=== PATIENT | female | born 1950 | race Caucasian/White ===

== ENCOUNTER → 2022-03-07 | Outpatient (CLI) | payer OTHER ==
[2022-03-07 19:57] LABS: Alanine Aminotransfer (ALT/SGP 21 U/L (12-78); Albumin, Blood 3.5 g/dL (3.4-5.0); Albumin/Globulin Ratio 0.9 (0.8-1.8); Alk Phos 94 U/L (50-136); Anion Gap 8 mmol/L (6-16); Aspartate Aminotrans (AST/SGOT 26 U/L (12-37); BASOPHILS ABSOLUTE AUTO 0.05 K/mm3 (0.00-0.23); BASOPHILS PERCENT AUTO 1 % (0-2); Bilirubin, Total 0.6 mg/dL (0.1-1.0); Blood Urea Nitrogen 28 mg/dL (8-24); Bun/Creatinine Ratio 20.7 (12.0-20.0); CHOL/HDL RATIO 4.1; CO2, Blood 24 mmol/L (21-32); Calcium, Blood 9.4 mg/dL (8.5-10.1); Chloride, Blood 108 mmol/L (98-108); Cholesterol 196 mg/dL (50-200); Creatinine, Blood 1.35 mg/dL (0.40-1.00); EOSINOPHILS ABSOLUTE AUTO 0.14 K/mm3 (0.00-0.68); EOSINOPHILS PERCENT AUTO 2 % (0-6); Globulin, Blood 4.1 g/dL (2.2-4.0); Glomerular Filtration Rate 42 (60-); Glucose, Blood 110 mg/dL (70-99); HDL Cholesterol 48 mg/dL (>39); Hematocrit 42.6 % (33.0-51.0); Hemoglobin 13.6 g/dL (11.5-16.0); IMMATURE GRAN ABSOLUTE AUTO 0.02 K/mm3 (0.00-0.10); IMMATURE GRAN PERCENT AUTO 0 % (0-1); LDL/HDL RATIO 2.5; LYMPHOCYTES ABSOLUTE AUTO 2.96 K/mm3 (0.84-5.20); LYMPHOCYTES PERCENT AUTO 42 % (21-46); Low Density Lipoprotein Chol 119 mg/dL (0-110); MONOCYTES ABSOLUTE AUTO 0.45 K/mm3 (0.16-1.47); MONOCYTES PERCENT AUTO 6 % (4-13); Mean Corpuscular HGB 29.8 pg (26.0-34.0); Mean Corpuscular HGB Conc 31.9 g/dL (31.5-36.5); Mean Corpuscular Volume 93 fL (80-100); Mean Platelet Volume 10.5 fL (9.1-12.4); NEUTROPHILS ABSOLUTE AUTO 3.48 K/mm3 (1.96-9.15); NEUTROPHILS PERCENT AUTO 49 % (41-73); Platelet Count 260 K/mm3 (150-400); Potassium, Blood 4.3 mmol/L (3.5-5.5); RDW Coefficient Variation 12.4 % (11.7-14.2); RDW Standard Deviation 42.7 fL (35.1-46.3); Red Blood Cell Count 4.57 M/mm3 (3.80-5.20); Sodium, Blood 140 mmol/L (136-145); Total Protein, Blood 7.6 g/dL (6.4-8.2); Triglycerides 144 mg/dL (30-160); Very Low Density Lipoprot Chol 28 mg/dL (6-32)
== END | disposition home or self-care (01) ==
LOC: LAB SHORT 11:00
PROVIDERS: Physician Assistant
DX: E78.5 Hyperlipidemia, unspecified (principal)
CPT/HCPCS: 80053; 80061; 85025

== ENCOUNTER → 2022-09-12 | Outpatient (CLI) | payer OTHER | END | disposition home or self-care (01) | LOC: LAB SHORT 11:35 | DX: N39.0 Urinary tract infection, site not specified (principal) | CPT/HCPCS: 87077; 87086; 87186 ==

== ENCOUNTER → 2022-10-09 | Outpatient (CLI) | payer OTHER | END | disposition home or self-care (01) | LOC: LAB SHORT 11:00 → LAB 11:00 | DX: R30.0 Dysuria (principal) | CPT/HCPCS: 87077; 87086; 87186 ==

== ENCOUNTER → 2023-07-22 | Outpatient (CLI) | payer OTHER ==
[2023-07-22 11:56] LABS: Source, Urine Clean Catch
[2023-07-22 19:05] LABS: Appearance, Urine Turbid (Clear); Bilirubin, Urine Neg (Neg); Blood, Urine 3+ (Neg); Color, Urine Yellow (P-Yellow); Glucose Qualitative, Urine Neg (Neg); Ketones, Urine Neg (Neg); Leukocyte Esterase, Urine 3+ (Neg); Nitrite, Urine Neg (Neg); Protein, Urine 2+ (Neg); Specific Gravity, Urine 1.015 (1.003-1.022); Urobilinogen, Urine NORM (Normal)
[2023-07-22 19:17] LABS: Bacteria Many /hpf; Squamous Epithelial Cells Many /hpf (Few)
[2023-07-22 19:45] LABS: Protein, Urine Random 34.5 mg/dL (0.0-11.9); Protein/Creat Ratio, Ur Random 0.2
== END | disposition home or self-care (01) ==
LOC: LAB SHORT 11:24 → LAB 11:24
PROVIDERS: Hospitalist
DX: N18.4 Chronic kidney disease, stage 4 (severe) (principal)
CPT/HCPCS: 81001; 82570; 84156; 87086

== ENCOUNTER 2024-05-21 01:07 | Day surgery (SDC) | payer OTHER ==
[2024-05-21] MEDS ORDERED: Cosyntropin 0.25 MG / ML 1ML Vial IV SCH (06:55)
[2024-05-21 08:34] VITALS: BP 118/73
--- NOTE | 2024-05-21 09:41 | NUR ---
30 MIN LAB DRAWN FROM PERIPHERAL PER PROTOCOL DRAWN AT 0907
[2024-05-21] MEDS ORDERED: ACET500 PO (09:46)
[2024-05-21] MEDS ORDERED: VITAMIN D325 MC3 PO (09:47)
[2024-05-21] MEDS ORDERED: Flonase 0.05% N16 GM (09:48)
[2024-05-21] MEDS ORDERED: FAMO20 PO (09:48)
[2024-05-21] MEDS ORDERED: ELIQUIS5 M2 PO (09:48)
[2024-05-21] MEDS ORDERED: ANORO ELLIPTA1 EAC1 INH (09:49)
[2024-05-21] MEDS ORDERED: MELATONIN TR 51 EACH PO (09:49)
== END 2024-05-21 09:40 | disposition home or self-care (01) ==
LOC: ATC 01:07
DX: I95.1 Orthostatic hypotension (principal); I34.0 Nonrheumatic mitral (valve) insufficiency; I44.0 Atrioventricular block, first degree; I48.0 Paroxysmal atrial fibrillation; J44.9 Chronic obstructive pulmonary disease, unspecified; N18.9 Chronic kidney disease, unspecified; Z88.2 Allergy status to sulfonamides; Z88.8 Allergy status to other drugs, medicaments and biological substances; Z79.01 Long term (current) use of anticoagulants; Z79.899 Other long term (current) drug therapy
CPT/HCPCS: 80400; 82533; 96374; J0834

== ENCOUNTER → 2025-01-25 | Outpatient (CLI) | payer OTHER ==
[~2025-01-25] MED LIST: ACET500 PO; ANORO ELLIPTA1 EAC1 INH; ELIQUIS5 M2 PO; FAMO20 PO; Flonase 0.05% N16 GM; MELATONIN TR 51 EACH PO; VITAMIN D325 MC3 PO
[2025-01-25 18:33] LABS: BASOPHILS ABSOLUTE AUTO 0.05 K/mm3 (0.00-0.23); BASOPHILS PERCENT AUTO 1 % (0-2); EOSINOPHILS ABSOLUTE AUTO 0.11 K/mm3 (0.00-0.68); EOSINOPHILS PERCENT AUTO 2 % (0-6); Hematocrit 38.2 % (33.0-51.0); Hemoglobin 12.5 g/dL (11.5-16.0); IMMATURE GRAN ABSOLUTE AUTO 0.01 K/mm3 (0.00-0.10); IMMATURE GRAN PERCENT AUTO 0 % (0-1); LYMPHOCYTES ABSOLUTE AUTO 2.44 K/mm3 (0.84-5.20); LYMPHOCYTES PERCENT AUTO 39 % (21-46); MONOCYTES ABSOLUTE AUTO 0.39 K/mm3 (0.16-1.47); MONOCYTES PERCENT AUTO 6 % (4-13); Mean Corpuscular HGB 31.2 pg (26.0-34.0); Mean Corpuscular HGB Conc 32.7 g/dL (31.5-36.5); Mean Corpuscular Volume 95 fL (80-100); NEUTROPHILS ABSOLUTE AUTO 3.23 K/mm3 (1.96-9.15); NEUTROPHILS PERCENT AUTO 52 % (41-73); Platelet Count 198 K/mm3 (150-400); RDW Coefficient Variation 12.4 % (11.7-14.2); RDW Standard Deviation 43.7 fL (35.1-46.3); Red Blood Cell Count 4.01 M/mm3 (3.80-5.20); White Blood Cell Count 6.23 K/mm3 (4.00-11.30)
[2025-01-25 20:17] LABS: Alanine Aminotransfer (ALT/SGP 22 U/L (12-78); Albumin, Blood 3.6 g/dL (3.4-5.0); Albumin/Globulin Ratio 1.1 (0.8-1.8); Alk Phos 80 U/L (50-136); Anion Gap 9 mmol/L (3-11); Aspartate Aminotrans (AST/SGOT 25 U/L (12-37); Bilirubin, Total 0.4 mg/dL (0.1-1.0); Blood Urea Nitrogen 27 mg/dL (8-24); Bun/Creatinine Ratio 24.1 (12.0-20.0); CHOL/HDL RATIO 2.9; CO2, Blood 26 mmol/L (21-32); Calcium, Blood 9.5 mg/dL (8.5-10.1); Chloride, Blood 107 mmol/L (98-108); Cholesterol 162 mg/dL (50-200); Creatinine, Blood 1.12 mg/dL (0.40-1.00); Globulin, Blood 3.3 g/dL (2.2-4.0); Glomerular Filtration Rate 52 (60-); Glucose, Blood 91 mg/dL (70-99); HDL Cholesterol 56 mg/dL (>39); LDL/HDL RATIO 1.3; Low Density Lipoprotein Chol 73 mg/dL (0-110); Potassium, Blood 4.6 mmol/L (3.5-5.5); Sodium, Blood 137 mmol/L (136-145); Total Protein, Blood 6.9 g/dL (6.4-8.2); Triglycerides 167 mg/dL (30-160); Very Low Density Lipoprot Chol 33 mg/dL (6-32)
[2025-01-27 15:50] LABS: HIV 1,2 COMBO ANTIGEN/ANTIBODY Negative (Negative)
[2025-01-27 19:05] LABS: HEPATITIS C AB CIA INTERP Negative (Negative); HEPATITIS C ANTIBODY CIA INDEX 0.08 IV
== END ==
LOC: LAB 18:05 → LAB SHORT 18:05
PROVIDERS: Nurse Practitioner Family
DX: Z11.4 Encounter for screening for human immunodeficiency virus [HIV] (principal); Z11.59 Encounter for screening for other viral diseases; N18.30 Chronic kidney disease, stage 3 unspecified
CPT/HCPCS: 80053; 80061; 85025; 86803; 87389